=== PATIENT | female | born 1930 | race Caucasian/White ===

== ENCOUNTER 2016-12-02 10:09 | Outpatient (CLI) | payer MEDICARE, OTHER ==
[2016-10-09 00:01] VITALS: BP 148/68
== END 2016-12-02 10:10 ==
LOC: POD 10:09
PROVIDERS: ATTEND Podiatrist Public Medicine
DX: B35.1 Tinea unguium (principal); L60.0 Ingrowing nail; M79.675 Pain in left toe(s)
CPT/HCPCS: G0463

== ENCOUNTER 2017-04-12 16:44 | Outpatient (CLI) | payer MEDICARE, OTHER ==
[2016-10-09 00:01] VITALS: BP 148/68
[2017-04-12 17:14] LABS: BASOPHILS % 0.5 (0.0-1.5); MEAN CORPUSCULAR VOLUME 95.2 fl (80.0-100.0); MONOCYTES % 7.4 % (0.0-11.0); NEUTROPHILS # 3.6 # k/uL (1.4-7.7)
[2017-04-12 17:22] LABS: eGFR (African) > 60; eGFR (Non-African) > 60
--- NOTE | 2017-04-12 18:31 | Diagnostic Imaging Report ---
[facility] [address] [facility].[address] [address] Report Submission Date: April 12, 2017 6:23:00 PM CDT Patient Study Name: BROOK ARAYA Date: April 12, 2017 5:02:05 PM CDT Modality Type: CR Gender: F Description: CHEST : 30 Institution: [facility] Physician: KELSEA BELEM - OP Chest, 2 view History: INCREASED DYSPNEA PAST 7 DAYS, END STAGE COPD, CHRONIC CHF, CURRENT SMOKER (71 YEARS OF SMOKING) Findings: The heart size is mildly enlarged with mild central vascular congestion. The lung amor are unchanged in appearance. There is blunting of the right costophrenic angle which is unchanged suggesting pleural thickening or small pleural effusion. Impression: 1. Mild cardiomegaly with central pulmonary vascular prominence, unchanged. 2. Possible small right pleural effusion versus pleural thickening, stable. Electronically signed on April 12, 2017 6:23:00 PM CDT by: Joseph PIMENTEL
== END 2017-04-12 16:45 ==
LOC: LAB 16:44
PROVIDERS: ATTEND Family Medicine
DX: I50.9 Heart failure, unspecified (principal); Z51.81 Encounter for therapeutic drug level monitoring; D63.8 Anemia in other chronic diseases classified elsewhere
CPT/HCPCS: 71020; 80053; 83880; 85025

== ENCOUNTER 2017-04-30 16:48 | Observation (INO) | payer MEDICARE, OTHER ==
--- NOTE | 2017-04-30 17:56 | History and Physical Report ---
History of Present Illnes - History of Present Illness Reason for Visit: Dyspnea/fever/hypoxia History of Present Illness: This is an 86 year old female well known to me with a history of end stage COPD and end stage aortic stenosis (refusing surgical treatment therof) who presented to the office this afternoon with c/o fever over the past few days to 102, and dyspnea. Her O2 sats in the office were 84%, and she was placed on oxygen (she is not on oxygen at home). She says that she has felt very tired and dyspneic with minimal exertion. She continues to smoke, but has cut down due to continued worsening of her COPD. She has not had any ill contacts of which she is aware. She has a cough which is intermittently productive. - Past Medical History Cardiac: CHF, Aortic stenosis (mod to severe). denies: AFIB, CAD, HTN, Hyperlipidemia Pulmonary: COPD Gastrointestinal: GERD. denies: Constipation, GI bleed Musculoskeletal: Osteoarthritis Endocrine: Other (hyperglycemia) - Past Surgical History Past Surgical History: None - Past Social History Smoke: <1 pack per day Alcohol: Occassional (one -3 drinks a week) Drugs: None Lives: Alone (), Other (uses a walker at times, able to get meals ok - uses the croSec[employer] pot alot and microwave dinners) - Health Maintenance Health Maintenance: Pneumococcal Vaccine (2009). denies: Cholesterol, Tetanus, Influenza Vaccine Influenza Vaccine: Current for this Influenza Season Pneumonia Vaccine: Yes Resuscitation Status: Resusciation Status Resuscitation Status Full Code - Unable to Obtain History Unable to Obtain: No Review of Systems - Review of Systems Constitutional: Fever, Chills, Sweats, Malaise Eyes: pain (generalized) ENT: negative: Ear Pain, Ear Discharge Respiratory: Cough, Shortness of Breath, SOB with Excertion, Wheezing Cardiovascular: negative: Chest Pain Gastrointestinal: negative: Nausea, Vomiting, Abdominal Pain Genitourinary: negative: Dysuria Musculoskeletal: negative: Neck Pain, Shoulder Pain Skin: negative: Rash Neurological: Weakness. negative: Change in Speech, Confusion - Medications/Allergies Allergies/Adverse Reactions: Allergies Allergy/AdvReac Type Severity Reaction Status Date / Time albuterol AdvReac Intermediate Palpitation Verified 10/08/16 22:43 s Exam - Exam General: Alert, Oriented to Person, Oriented to Place, Mild distress (due to dyspnea and generalized aches) HEENT: Atraumatic, PERRLA Neck: No: Stridor, Rigidity Lungs: Wheezes, Rhonchi, Prolonged Expiration, Decreased Air Movement Cardiovascular: Regular rate, Murmur (IV/ DEBBY) Heart Murmur Grade: IV Abdomen: Normal bowel sounds, Soft, No tenderness Genitourinary: No: Right Inguinal Hernia, Left Inguinal Hernia Male Genitourinary: No: Other Female Genitourinary: No: Other Integumentary: Pale. No: Cyanotic, Rash Extremities: Other (4+ edema BLE). No: No clubbing, No cyanosis Neurological: Normal speech Psych/Mental Status: Mental status NL - Interpretation/Data Interpretation/Data: CXR/cmp/CBC/UA pending. Assessment/Plan - Assessment/Plan (1) Fever and chills Status: Acute Current Visit: Yes Assessment: Check CBC, CXR, ua (2) Aortic stenosis, non-rheumatic Status: Acute Current Visit: No Assessment: Chronic and refusing surgical correction (3) COPD (chronic obstructive pulmonary disease) Status: Acute Current Visit: No Qualifiers: COPD type: unspecified COPD Qualified Code(s): J44.9 - Chronic obstructive pulmonary disease, unspecified Comment: With continued smoking Assessment: Declines nebulizer treatments (4) Congestive heart failure Status: Acute Current Visit: No Qualifiers: Congestive heart failure type: unspecified congestive heart failure type Congestive heart failure chronicity: acute on chronic Qualified Code(s): I50.9 - Heart failure, unspecified Assessment: Due to end stage (5) SOB (shortness of breath) Status: Acute Current Visit: No Assessment: Due to COPD and CHF Plan: Check CXR, BMP VTE Assessment - RISK FACTOR SCORE VTE RISK FACTOR SCORES: AGE OVER 60 YEARS, ACUTE RESPIRATORY FAILURE/SEVERE COPD (Start Lovenox 30 mg sc qd)
[2017-04-30] MEDS ORDERED: ENOXAPARIN SODIUM 30 MG/0.3 ML DISP.SYRIN SQ SCH (18:00)
[2017-04-30 18:21] LABS: BASOPHILS % 0.4 (0.0-1.5); EOSINOPHILS % 0.7 % (0.0-6.8); MEAN CORPUSCULAR HEMOGLOBIN 31.3 pg (28.0-34.0); MEAN CORPUSCULAR VOLUME 95.9 fl (80.0-100.0); MONOCYTES % 6.8 % (0.0-11.0); NEUTROPHILS # 5.6 # k/uL (1.4-7.7)
[2017-04-30 18:29] LABS: eGFR (African) > 60; eGFR (Non-African) > 60
[2017-04-30] MEDS ORDERED: ENOXAPARIN SODIUM 30 MG/0.3 ML DISP.SYRIN SQ ONE (19:28)
[2017-04-30] MEDS ORDERED: BUSPIRONE HCL 5 MG TABLET PO ONE (19:30)
[2017-04-30] MEDS ORDERED: METOPROLOL TARTRATE 50 MG TABLET ONE (19:30)
[2017-04-30 19:36] VITALS: BMI 21.1
[2017-04-30] MEDS: METOPROLOL TARTRATE 25 MG TABLET PO SCH (20:01)
[2017-04-30] MEDS: BUSPIRONE HCL 5 MG TABLET PO SCH (20:01)
[2017-05-01] MEDS ORDERED: FUROSEMIDE 40 MG TABLET PO ONE (04:56)
[2017-05-01] MEDS ORDERED: BUSPIRONE HCL 5 MG TABLET PO ONE (04:56)
[2017-05-01] MEDS ORDERED: POTASSIUM CHLORIDE 10 MEQ TABLET.ER PO ONE (04:56)
[2017-05-01] MEDS ORDERED: METOPROLOL TARTRATE 50 MG TABLET ONE (04:57)
--- NOTE | 2017-05-01 07:09 | Diagnostic Imaging Report ---
[facility] [address] [facility].[address] [address] Report Submission Date: Apr 30, 2017 6:33:17 PM CDT Patient Study Name: BROOK ARAYA Date: Apr 30, 2017 6:03:06 PM CDT Modality Type: CR Gender: F Description: CHEST : 30 Institution: [facility] Physician: [facility] Examination: PA lateral chest History: Dyspnea Comparison exams: 12 Apr 2017 Findings: PA and lateral view of the chest demonstrates a stable cardiac silhouette. Few vascular calcifications involving the aortic arch. Increased parenchymal haziness involving the right costophrenic margin. Remaining right hemithorax and the left hemithorax are without other infiltrate. Blunting of the posterior sulci on the right. Osseous structures are appropriate for age. Impression: Increased right base infiltrate/effusion. Electronically signed on Apr 30, 2017 6:33:17 PM CDT by: Rush PIMENTEL
[2017-05-01] MEDS ORDERED: POTASSIUM CHLORIDE 10 MEQ TABLET.ER PO SCH (09:00)
[2017-05-01] MEDS ORDERED: FUROSEMIDE 40 MG TABLET PO SCH (09:00)
[2017-05-01] MEDS: BUSPIRONE HCL 5 MG TABLET PO SCH (09:21)
[2017-05-01] MEDS: METOPROLOL TARTRATE 25 MG TABLET PO SCH (09:22)
[2017-05-01 13:34] VITALS: BP 124/64
[2017-05-02 05:39] LABS: OCCULT BLOOD,URINE TRACE-LYSED (NEGATIVE); PH URINE 5.5 (5.0 - 8.0)
--- NOTE | 2017-05-03 08:35 | Discharge Summary ---
DATE OF ADMISSION: April 30, 2017 DATE OF DISCHARGE: May 01, 2017 DIAGNOSES ON THIS HOSPITALIZATION: 1. Right basilar pneumonia. 2. Chills. 3. Fever. 4. Aortic stenosis. 5. Congestive heart failure. 6. Chronic obstructive pulmonary disease (COPD). SUMMARIZATION OF ADMISSION HISTORY AND PHYSICAL: This is an 86-year-old female who I saw in the office on the day of admission with fever and she was also noted to be hypoxic with a pulse oximetry of 84%. As a result, she was admitted for observation. Workup was done. A CBC essentially was within normal limits. Her electrolytes were within normal limits. She did have a right basilar infiltrate. HOSPITAL COURSE: She was admitted. After an evaluation, she was started on Ceftin 250 mg p.o. b.i.d. She was discharged to home with continuation of all of her regular medications. CONDITION ON DISCHARGE: She was discharged to home in improved condition. DISCHARGE INSTRUCTIONS: Follow up in the office in 1 week. Call or return for any new problems. MARGARITO
== END 2017-05-01 13:00 | disposition home or self-care (01) ==
LOC: SOUTH 16:48 → INTOOBSV 16:48 → UNDOADMIN 16:48 → UNDODISIN 05-01 13:00
PROVIDERS: ADMIT Family Medicine; ATTEND Family Medicine
DX: J18.1 Lobar pneumonia, unspecified organism (principal); J44.1 Chronic obstructive pulmonary disease with (acute) exacerbation; I35.1 Nonrheumatic aortic (valve) insufficiency; I50.9 Heart failure, unspecified
CPT/HCPCS: 36415; 71020; 80053; 81002; 85025; 93005; G0378; G0379; J1650; 96374; 96376

== ENCOUNTER 2017-05-07 11:50 | Emergency (ER) | payer MEDICARE, OTHER ==
[2017-05-07] MEDS: BUDESONIDE 0.5MG/2ML AMPUL.NEB NEB ONE (12:05)
[2017-05-07] MEDS ORDERED: BUDESONIDE 0.5MG/2ML AMPUL.NEB NEB ONE (12:05)
[2017-05-07] MEDS ORDERED: IPRATROPIUM/ALBUTEROL SULFATE 3 ML AMPUL.NEB NEB ONE (12:06)
[2017-05-07] MEDS: IPRATROPIUM/ALBUTEROL SULFATE 3 ML AMPUL.NEB NEB ONE (12:21)
[2017-05-07] MEDS: predniSONE 20 MG TABLET PO ONE (12:38)
--- NOTE | 2017-05-07 14:15 | Diagnostic Imaging Report ---
[facility] [address] [facility].[address] [address] Report Submission Date: May 07, 2017 1:02:13 PM CDT Patient Study Name: BROOK ARAYA Date: May 07, 2017 12:33:33 PM CDT Modality Type: CR Gender: F Description: CHEST : 30 Institution: [facility] Physician WILLIAM MCMAHAN - ER Chest -one view CLINICAL HISTORY: Shortness of breath. FINDINGS: Examination of the chest single portable AP view 05/07/2017 1233 hr with comparison to examination of 04/30/2017 demonstrates improved aeration right base with residual right-sided effusion and right basilar atelectasis. There is mild prominence of the bronchovascular markings. Cardiac silhouette is enlarged and the aorta is atherosclerotic. Monitor leads superimpose the chest. IMPRESSION: Improved aeration right base with residual effusion and infiltrate or atelectasis. Prominence of bronchovascular markings consistent with congestion. Electronically signed on May 07, 2017 1:02:13 PM CDT by: Noah PIMENTEL
--- NOTE | 2017-05-07 14:29 | ED Physician Documentation ---
Dyspnea - HISTORIAN Historian: patient - HPI Stated Complaint: short of breath Chief Complaint: Dyspnea Additional Information: not using nebulizer txs and oxygen at home Onset: other (today) Initiating Event: other (refuses to take nebulizer trteatments and oxygen) Context: copd Severity: moderate Exacerbated By: exertion Associated Symptoms: denies: sweating, chest pain, chest discomfort, bloody cough, productive cough, dizziness, light-headedness Further Comments: no - ROS CONST: no problems EYES/ENT: none GI/: none NEURO/PSYCH: denies: headache MS/SKIN/LYMPH: none - PAST HX Lung Disease: COPD Cardiac Disease: CHF PE Risk Factors: other (copd and chf) Surgeries/Procedures: other (see nurses notes) Other History: none Immunizations: referred to PCP Allergies/Adverse Reactions: Allergies Allergy/AdvReac Type Severity Reaction Status Date / Time albuterol AdvReac Intermediate Palpitation Verified 10/08/16 22:43 s Home Medications: Ambulatory Orders Medication Instructions Recorded Levalbuterol HCl [Xopenex] 1.25 mg NEB Q6 PRN #100 ampul.neb 01/24/16 Aspirin 325 mg PO DAILY u2 07/21/16 - SOCIAL HX Smoking History: non-smoker, quit less than 1 year, other (former heavy smoker) Alcohol Use: none Drug Use: none - FAMILY HX Family History: no significant history - VITAL SIGNS Vital Signs: Vital Signs Temp Pulse Resp BP Pulse Ox 97.8 F 79 24 190/79 88 L 05/07/17 11:51 05/07/17 11:51 05/07/17 11:51 05/07/17 11:51 05/07/17 11:51 - REVIEWED ASSESSMENTS Nursing Assessment Reviewed: Yes Vitals Reviewed: Yes Progress - Results/Orders Results/Orders: cxr, duoneb and pulmicort nebulizers ordered, prednisone 60 mg p.o. ordered - Progress Progress: Pt's ra O2 sat 88% on presentation, increased to 96% after duoneb and pulmicort txs. No significant tachycardia and palpitations occured and it was made clear to patient that this is not an allergy and not even a significant side effect as we just proved by giving her an albuterol based tx with no adverse effect. Critical Care Note - Critical Care Note Total Time (mins): 0 ED Results Lab/Radiology - Lab Results Lab Results: none ordered - Radiology Radiology Impressions: cxr clear of infiltrate - Orders Orders: ED Orders Category Date Time Status CHEST 1 VIEW [RAD] Routine Exams 05/07/17 Ordered Budesonide [Pulmicort] Med 05/07/17 12:05 Discontinued 0.5 mg NEB .STK-MED ONE Budesonide [Pulmicort] Med 05/07/17 12:09 Discontinued 0.5 mg NEB NOW ONE Ipratropium/Albuterol Sulfate [Duoneb] Med 05/07/17 12:06 Discontinued 3 ml NEB .STK-MED ONE Ipratropium/Albuterol Sulfate [Duoneb] Med 05/07/17 12:04 Discontinued 3 ml NEB NOW ONE predniSONE [Deltasone] Med 05/07/17 12:04 Discontinued 60 mg PO NOW ONE Oxygen Daily Oxygen 05/07/17 12:15 Ordered Dyspnea Physical Exam - EXAM General Appearance: alert, mild distress EENT: eye inspection normal, ENT inspection normal, pharynx normal, no signs of dehydration, JOHNNY, no nystagmus, TM's nml Neck: nml inspection Respiratory: no resp. distress, speaks full sentences, wheezes (mild, scatererd) . No: respiratory distress, accessory muscle use, rales, rhonchi, stridor CVS: reg. rate & rhythm Abdomen: non-tender, no organomegaly, no distention Skin: color nml, no rash Extremities: normal range of motion, no evidence of injury, edema Neuro/Psych: oriented x3, CN's nml as tested, motor nml, sensation nml, mood/ affect nml Discharge Clincal Impression: COPD (chronic obstructive pulmonary disease) Qualifiers: COPD type: COPD with acute exacerbation Qualified Code(s): J44.1 - Chronic obstructive pulmonary disease with (acute) exacerbation Referrals: Néstro Huber MD [Primary Care Provider] - 2 Days Home Medications: Ambulatory Orders Levalbuterol HCl [Xopenex] 1.25 mg NEB Q6 PRN #100 ampul.neb 01/24/16 Aspirin 325 mg PO DAILY u2 07/21/16 Comments: discharged with scripts and strict recommendation to use oxygen 2 liters nc continuous, nebulizer, duoneb via nebulizer qid and q 4 hours prn, pulmicort 0.5 mg bid, prednisone 10 mg 5 p.o. x 1 day then 4 p.o. x 1 day then 3 p.o. x 1 day then 2 p.o. x 1 day then 1 p.o. x 1 day then off Condition: Stable Disposition: 01 HOME, SELF-CARE Decision to Admit: NO Decision Time: 14:30
[2017-05-07 15:30] VITALS: BP 144/62
== END 2017-05-07 14:45 | disposition home or self-care (01) ==
LOC: ED 11:50
DX: J44.1 Chronic obstructive pulmonary disease with (acute) exacerbation (principal)
CPT/HCPCS: 71010; J7626; 99283

== ENCOUNTER 2017-06-30 05:44 | Inpatient (IN) | payer MEDICARE, OTHER ==
[2017-06-30] MEDS ORDERED: IPRATROPIUM/ALBUTEROL SULFATE 3 ML AMPUL.NEB NEB ONE (06:11)
--- NOTE | 2017-06-30 06:24 | ED Physician Documentation ---
General Adult - HISTORIAN Historian: patient - HPI Stated Complaint: SOB Chief Complaint: General Adult Additional Information: SOB began yesterday but she ignored it. Woke her up quite short of breath this morning. COPD .Still smokes and says it helps her breathe better. Does not use oxygen because it doesn't help and she can't carry it around al the time. Lower legs swollen. Doesn't take lasix because it makes her urinate too much. - ROS CONST: no problems. denies: fever, sweating - PAST HX Past History: COPD - SOCIAL HX Smoking History: cigarettes - FAMILY HX Family History: No - VITAL SIGNS Vital Signs: Vital Signs Temp Pulse Resp BP Pulse Ox 88 22 213/91 98 06/30/17 06:00 06/30/17 06:00 06/30/17 06:00 06/30/17 06:00 - REVIEWED ASSESSMENTS Nursing Assessment Reviewed: Yes Vitals Reviewed: Yes <THU SÁNCHEZ - Last Filed: 06/30/17 06:58> - VITAL SIGNS Vital Signs: Vital Signs Temp Pulse Resp BP Pulse Ox 88 22 213/91 98 06/30/17 06:00 06/30/17 06:00 06/30/17 06:00 06/30/17 06:00 <John Smith - Last Filed: 06/30/17 09:08> - PAST HX Allergies/Adverse Reactions: Allergies Allergy/AdvReac Type Severity Reaction Status Date / Time albuterol AdvReac Intermediate Palpitation Verified 06/30/17 06:09 s Home Medications: Ambulatory Orders Medication Instructions Recorded Aspirin 325 mg PO DAILY u2 07/21/16 Progress - Progress Progress: 0700, Care to Dr Juarez. Awaiting labs and CXR. <THU SÁNCHEZ - Last Filed: 06/30/17 06:58> ED Results Lab/Radiology - Orders Orders: ED Orders Category Date Time Status Place IV Lock 1T Care 06/30/17 06:11 Ordered CBC/PLATELET/DIFF Routine Lab 06/30/17 Ordered CMP Routine Lab 06/30/17 Ordered NT-proBNP Stat Lab 06/30/17 Ordered URINALYSIS Routine Lab 06/30/17 Ordered Budesonide [Pulmicort] Med 06/30/17 09:00 Ordered 0.5 mg NEB BID Ipratropium/Albuterol Sulfate [Duoneb] Med 06/30/17 06:11 Once 3 ml NEB NOW ONE NORMAL SALINE @ 100 MLS/HR(1000ml) Med 06/30/17 06:30 Ordered 0.9 % Sodium Chloride [Normal Saline] 1,000 ml IV Q10H <THU SÁNCHEZ - Last Filed: 06/30/17 06:58> - Lab Results Lab Results: Lab Results 06/30/17 06/30/17 06/30/17 07:35 07:35 07:35 WBC 4.95 K/ul K/ul (4.00-12.00) RBC 4.04 M/ul M/ul (3.90-5.20) Hgb 12.2 g/dL g/dL (12.0-16.0) Hct 37.3 % % (34.5-46.5) MCV 92.4 fl fl (80.0-100.0) MCH 30.2 pg pg (28.0-34.0) MCHC 32.7 g/dL g/dL (30.0-36.0) RDW 14.2 % % (11.3-14.3) Plt Count 268 K/mm3 K/mm3 (130-400) Neut % (Auto) 74.8 % % (39.0-79.0) Lymph % (Auto) 15.5 % L % (16.0-50.0) [place] % (Auto) 5.6 % % (0.0-11.0) Eos % (Auto) 2.9 % % (0.0-6.8) Baso % (Auto) 0.3 (0.0-1.5) Neut # (Auto) 3.7 # k/uL # k/uL (1.4-7.7) Lymph # (Auto) 0.8 # k/uL # k/uL (0.6-4.0) [place] # (Auto) 0.3 # k/uL # k/uL (0.0-0.9) Eos # (Auto) 0.2 # k/uL # k/uL (0.0-0.6) Baso # (Auto) 0.0 # k/uL # k/uL (0.0-0.5) Reactive Lymphs % 0.8 % % (0.0-5.0) Reactive Lymphs # 0.0 # k/uL # k/uL (0.0-0.8) Sodium 138 mmol/L mmol/L (136-145) Potassium 3.9 mmol/L mmol/L (3.5-5.0) Chloride 98 mmol/L mmol/L (98-110) Carbon Dioxide 36 mmol/L H mmol/L (20-32) BUN 13 mg/dL mg/dL (10-26) Creatinine 0.7 mg/dL mg/dL (0.4-1.5) Estimated Creat Clear 51 Est GFR ( Amer) > 60 (60 - ) Est GFR (Non-Af Amer) > 60 (60 - ) Glucose 116 mg/dL H mg/dL (70-99) Calcium 9.4 mg/dL mg/dL (8.5-10.5) Total Bilirubin 0.8 mg/dL mg/dL (0.2-1.2) AST 21 U/L U/L (0-41) ALT 11 U/L U/L (0-45) Alkaline Phosphatase 62 U/L U/L (46-116) NT-Pro-B Natriuret Pep 9633.4 pg/mL H pg/mL (15.0-450.0) Total Protein 6.8 g/dL g/dL (6.0-8.5) Albumin 4.4 g/dL g/dL (3.0-5.5) - Orders Orders: ED Orders Category Date Time Status [place] [Urinary catheterization] 1T Care 06/30/17 09:[address] IV Lock 1T Care 06/30/17 06:11 Active CHEST 1 VIEW [RAD] Stat Exams 06/30/17 Taken CBC/PLATELET/DIFF Routine Lab 06/30/17 07:35 Completed CMP Routine Lab 06/30/17 07:35 Completed NT-proBNP Stat Lab 06/30/17 07:35 Completed URINALYSIS Routine Lab 06/30/17 Ordered 0.9 % Sodium Chloride [Normal Saline] 1,000 ml Med 06/30/17 06:30 Ordered IV Q10H Budesonide [Pulmicort] Med 06/30/17 09:00 Ordered 0.5 mg NEB BID Furosemide [Lasix] Med 06/30/17 09:02 Discontinued 40 mg .ROUTE .STK-MED ONE Furosemide [Lasix] Med 06/30/17 21:00 Ordered 40 mg IVP Q12 Ipratropium/Albuterol Sulfate [Duoneb] Med 06/30/17 06:11 Discontinued 3 ml NEB NOW ONE <John Smith - Last Filed: 06/30/17 09:08> General Adult Physical Exam - PHYSICAL EXAM GENERAL APPEARANCE: no distress (on 3L/NC at time of exam) EENT: eye inspection normal, ENT inspection normal, pharynx normal NECK: supple RESPIRATORY: chest non-tender, wheezes, other (decreased breath sounds throughotu) CVS: reg rate & rhythm, heart sounds normal, murmur (3/6 DEBBY) ABDOMEN: soft, normal bowel sounds RECTAL: deferred BACK: no CVA tenderness, other (no vertebral tenderness. thoracic kyphosis) SKIN: warm/dry, normal color (except lower legs with erythema) EXTREMITIES: no evidence of injury, edema (lower legs) NEURO: CN's nml as tested, motor nml, sensation nml, cognition normal <THU SÁNCHEZ - Last Filed: 06/30/17 06:58> Discharge <THU SÁNCHEZ - Last Filed: 06/30/17 06:58> Comments: discussed condition w/ pt and DR ENAMORADO - will admit care Decision to Admit: [id number] Decision Time: 09:08 <John Smith - Last Filed: 06/30/17 09:08> Clincal Impression: acute exab chronic chf, chronic chf w/exaberation, bilateral leg edema Referrals: Néstor Enamorado MD [Primary Care Provider] - 2 Days Home Medications: Ambulatory Orders Aspirin 325 mg PO DAILY u2 07/21/16 Condition: Fair Disposition: XFER [facility]
[2017-06-30] MEDS ORDERED: 0.9 % SODIUM CHLORIDE 1,000 ML IV SCH (06:30)
[2017-06-30 07:58] LABS: MEAN CORPUSCULAR HEMOGLOBIN 30.2 pg (28.0-34.0); MEAN CORPUSCULAR VOLUME 92.4 fl (80.0-100.0)
[2017-06-30 07:59] LABS: BASOPHILS % 0.3 (0.0-1.5); EOSINOPHILS % 2.9 % (0.0-6.8); MONOCYTES % 5.6 % (0.0-11.0); NEUTROPHILS # 3.7 # k/uL (1.4-7.7)
[2017-06-30 08:09] LABS: eGFR (African) > 60; eGFR (Non-African) > 60
[2017-06-30] MEDS ORDERED: BUDESONIDE 0.5MG/2ML AMPUL.NEB NEB SCH (09:00)
[2017-06-30] MEDS ORDERED: FUROSEMIDE 20 MG/2 ML VIAL ONE (09:02)
--- NOTE | 2017-06-30 13:10 | History and Physical Report ---
History of Present Illnes - History of Present Illness Reason for Visit: Shortness of breath History of Present Illness: This is an 86 year old female well known to myself who presents to the ER today with c/o increasing shortness of breath over the past few days. She has a long history of non compliance due to side effects of her medications. She continues to smoke, but has cut down to between 1 and 2 packs per day. She has a history of CHF and this is mostly due to severe aortic stenosis and she has declined ( reasonably) treatment of this. She seldom takes her furosemide due to problems with urinary incontinence and won't use her nebulizer due to it making her anxious. She does use a Attila's nasal inhaler, but uses it orally. She has recently begrudgingly consented to use her oxygen. She denies any chest pain but has significant orthopnea. - Past Medical History Cardiac: CHF, Aortic stenosis (mod to severe). denies: AFIB, CAD, HTN, Hyperlipidemia Pulmonary: COPD Gastrointestinal: GERD. denies: Constipation, GI bleed Psych: denies: Anxiety Musculoskeletal: Osteoarthritis Endocrine: Other (hyperglycemia) - Past Surgical History Past Surgical History: None - Past Social History Smoke: <1 pack per day Alcohol: Occassional (one -3 drinks a week) Drugs: None Lives: Alone (), Other (uses a walker at times, able to get meals ok - uses the crock pot alot and microwave dinners) Domestic Violence: Negative - Health Maintenance Health Maintenance: Pneumococcal Vaccine (2009). denies: Cholesterol, Tetanus, Influenza Vaccine Influenza Vaccine: Current for this Influenza Season Pneumonia Vaccine: Yes Resuscitation Status: DNR Review of Systems - Review of Systems Constitutional: negative: Fever, Chills Eyes: negative: pain, redness ENT: negative: Ear Discharge Respiratory: Cough, Shortness of Breath, SOB with Excertion, Other (orthopenea) Cardiovascular: negative: Chest Pain Gastrointestinal: negative: Nausea, Vomiting Genitourinary: negative: Dysuria Musculoskeletal: negative: Neck Pain, Shoulder Pain Skin: negative: Rash Neurological: negative: Weakness, Change in Speech - Medications/Allergies Allergies/Adverse Reactions: Allergies Allergy/AdvReac Type Severity Reaction Status Date / Time albuterol AdvReac Intermediate Palpitation Verified 06/30/17 06:09 s Current Inpatient Medications: Current Inpatient Medications Aspirin (Aspirin) 325 mg PO DAILY DIANA Miscellaneous (Potassium Chloride [Potassium Chloride]) 2 u2 PO DAILY [facility] Prednisone (Deltasone) 20 mg PO DAILY [facility] Exam - Exam Vital Signs: Vital Signs (72 hours) 06/30/17 06/30/17 09:54 10:02 Temperature 98.5 F Pulse Rate [ 68 75 Pulse ox] Respiratory 24 20 Rate Blood Pressure 183/66 184/68 [Left Arm] O2 Sat by Pulse 96 100 Oximetry General: Alert, Oriented to Person, Oriented to Place, Oriented to Time, Moderate distress (respiratory) HEENT: Atraumatic, PERRLA Neck: No: Stridor Lungs: Wheezes, Rales, Prolonged Expiration, Decreased Air Movement Cardiovascular: Regular rate Murmur: Systolic Murmur Heart Murmur Grade: IV (consistent with aortic stenosis (crescendo-decrescendo)) Abdomen: Normal bowel sounds, Soft Genitourinary: No: Right Inguinal Hernia, Left Inguinal Hernia Female Genitourinary: No: Other Integumentary: Normal Extremities: Other (4+ edema BLE) Neurological: Normal speech, Strength Equal Bilat, Normal tone Psych/Mental Status: Mental status NL, Intact Judgment Assessment/Plan - Assessment/Plan (1) Congestive heart failure Status: Acute Current Visit: No Qualifiers: Congestive heart failure type: unspecified congestive heart failure type Congestive heart failure chronicity: acute on chronic Qualified Code(s): I50.9 - Heart failure, unspecified Assessment: She agrees to allow lasix until she is better (2) Aortic stenosis, non-rheumatic Status: Acute Current Visit: No Assessment: Declining intervention (3) COPD (chronic obstructive pulmonary disease) Status: Acute Current Visit: No Qualifiers: COPD type: unspecified COPD Qualified Code(s): J44.9 - Chronic obstructive pulmonary disease, unspecified Comment: With continued smoking Assessment: With continued smoking Plan: Supplemental oxygen/nebulizer treatments VTE Assessment - RISK FACTOR SCORE VTE RISK FACTOR SCORES: AGE OVER 60 YEARS, ANTICIPATED BED CONFINEMENT OR IMMOBILIZATION > 24 HOURS (On Lovenox and KAYE hose)
[2017-06-30] MEDS: predniSONE 20 MG TABLET PO SCH (13:35)
--- NOTE | 2017-06-30 15:42 | Diagnostic Imaging Report ---
THU SÁNCHEZ - JOSE FRANCISCO [facility] [address] [facility] [address] [address] Report Submission Date: Jun 30, 2017 7:20:23 AM CDT Patient Study Name: BROOK ARAYA Date: Jun 30, 2017 7:01:09 AM CDT Modality Type: CR Gender: F Description: CHEST : 30 Institution: [facility] Physician: THU SÁNCHEZ - JOSE FRANCISCO Chest -one view CLINICAL HISTORY: Shortness breath. FINDINGS: Examination of the chest single portable AP view 06/30/2017 0701 hr with comparison to examination of 05/07/2017 demonstrates increasing pulmonary vascular congestion with small effusions blunting the costophrenic angles. Cardiac silhouette is enlarged and the aorta is atherosclerotic. Monitor leads superimpose the chest. IMPRESSION: Congestive heart failure with worsening pulmonary vascular congestion. Electronically signed on Jun 30, 2017 7:20:23 AM CDT by: Noah PIMENTEL
[2017-06-30 18:37] VITALS: BMI 20.7
[2017-06-30] MEDS ORDERED: FUROSEMIDE 40 MG/4 ML VIAL IVP SCH (21:00)
[2017-07-01] MEDS: POTASSIUM CHLORIDE 20 MEQ TABLET.ER PO SCH (08:30)
[2017-07-01] MEDS: predniSONE 20 MG TABLET PO SCH (08:30)
[2017-07-01] MEDS: ASPIRIN 325 MG TABLET PO SCH (08:30)
[2017-07-01] MEDS ORDERED: POTASSIUM CHLORIDE PO SCH (09:00)
--- NOTE | 2017-07-01 10:33 | Inpatient Progress Note ---
Subjective - Required Recertification Statement I anticipate X number of days because-include discharge plan: 1 - Review of Systems Events since last encounter: Debra is still very short of breath. She is allowing us to give her lasix, and nebulizer treatments. She says that her nose was very dry as her humidifier on her oxygen was dry. She is not having any chest pain. General: Denies: Chills, Night Sweats HEENT: Denies: Head Aches, Visual Changes Pulmonary: Dyspnea, Cough Cardiovascular: Orthopnea. Denies: Chest Pain, Palpitations Gastrointestinal: Denies: Nausea Genitourinary: Denies: Dysuria Musculoskeletal: Denies: Neck Pain Neurological: Weakness. Denies: Confusion Objective - Exam Vitals and I&O: Vital Signs Temp 97.7 F 07/01/17 09:39 Pulse 75 07/01/17 09:39 Resp 26 H 07/01/17 09:39 BP 159/96 07/01/17 09:39 Pulse Ox 92 07/01/17 09:39 Intake & Output 06/30/17 06/30/17 07/01/17 11:59 23:59 11:59 Intake Total 340 840 Balance 340 840 Weight 48.081 kg Intake: Oral 340 840 Other: Voiding Method Toilet Toilet # Voids 2 4 General: Alert, Oriented to Place, Cooperative, Mild distress, Thin HEENT: Atraumatic, PERRLA, EOMI, Other (Dentures) Neck: Supple Lungs: Respiratory Distress, Wheezes, Rales, Decreased Air Movement Cardiovascular: Regular rate, Murmur (II/) Abdomen: Normal bowel sounds, Soft Skin: Normal, [place], Warm - Results Results: Laboratory Results WBC 5.00 K/ul (4.00-12.00) 06/30/17 07:35 RBC 4.04 M/ul (3.90-5.20) 06/30/17 07:35 Hgb 12.2 g/dL (12.0-16.0) 06/30/17 07:35 Hct 37.3 % (34.5-46.5) 06/30/17 07:35 MCV 92.4 fl (80.0-100.0) 06/30/17 07:35 MCH 30.2 pg (28.0-34.0) 06/30/17 07:35 MCHC 32.7 g/dL (30.0-36.0) 06/30/17 07:35 RDW 14.2 % (11.3-14.3) 06/30/17 07:35 Plt Count 268 K/mm3 (130-400) 06/30/17 07:35 Neut % (Auto) 74.8 % (39.0-79.0) 06/30/17 07:35 Lymph % (Auto) 15.5 % (16.0-50.0) L 06/30/17 07:35 [place] % (Auto) 5.6 % (0.0-11.0) 06/30/17 07:35 Eos % (Auto) 2.9 % (0.0-6.8) 06/30/17 07:35 Baso % (Auto) 0.3 (0.0-1.5) 06/30/17 07:35 Neut # (Auto) 3.7 # k/uL (1.4-7.7) 06/30/17 07:35 Lymph # (Auto) 0.8 # k/uL (0.6-4.0) 06/30/17 07:35 [place] # (Auto) 0.3 # k/uL (0.0-0.9) 06/30/17 07:35 Eos # (Auto) 0.2 # k/uL (0.0-0.6) 06/30/17 07:35 Baso # (Auto) 0.0 # k/uL (0.0-0.5) 06/30/17 07:35 Reactive Lymphs % 0.8 % (0.0-5.0) 06/30/17 07:35 Reactive Lymphs # 0.0 # k/uL (0.0-0.8) 06/30/17 07:35 Sodium 138 mmol/L (136-145) 06/30/17 07:35 Potassium 3.9 mmol/L (3.5-5.0) 06/30/17 07:35 Chloride 98 mmol/L (98-110) 06/30/17 07:35 Carbon Dioxide 36 mmol/L (20-32) H 06/30/17 07:35 BUN 13 mg/dL (10-26) 06/30/17 07:35 Creatinine 0.7 mg/dL (0.4-1.5) 06/30/17 07:35 Estimated Creat Clear 51 06/30/17 07:35 Est GFR ( Amer) > 60 (60-) 06/30/17 07:35 Est GFR (Non-Af Amer) > 60 (60-) 06/30/17 07:35 Glucose 116 mg/dL (70-99) H 06/30/17 07:35 Calcium 9.4 mg/dL (8.5-10.5) 06/30/17 07:35 Total Bilirubin 0.8 mg/dL (0.2-1.2) 06/30/17 07:35 AST 21 U/L (0-41) 06/30/17 07:35 ALT 11 U/L (0-45) 06/30/17 07:35 Alkaline Phosphatase 62 U/L (46-116) 06/30/17 07:35 NT-Pro-B Natriuret Pep 9633.4 pg/mL (15.0-450.0) H 06/30/17 07:35 Total Protein 6.8 g/dL (6.0-8.5) 06/30/17 07:35 Albumin 4.4 g/dL (3.0-5.5) 06/30/17 07:35 Assessment/Plan - Assessment/Plan (1) Congestive heart failure Status: Acute Current Visit: No Qualifiers: Congestive heart failure type: unspecified congestive heart failure type Congestive heart failure chronicity: acute on chronic Qualified Code(s): I50.9 - Heart failure, unspecified Assessment: Due to severe Plan: Continue diuresis (2) Aortic stenosis, non-rheumatic Status: Acute Current Visit: No Assessment: Not a surgical candidate (3) COPD (chronic obstructive pulmonary disease) Status: Acute Current Visit: No Qualifiers: COPD type: unspecified COPD Qualified Code(s): J44.9 - Chronic obstructive pulmonary disease, unspecified Comment: With continued smoking Assessment: Continue nebulizer treatments/oxygen
[2017-07-01] MEDS: FUROSEMIDE 40 MG TABLET PO SCH (14:36)
[2017-07-02] MEDS: FUROSEMIDE 40 MG TABLET PO SCH (05:59)
[2017-07-02] MEDS: ASPIRIN 325 MG TABLET PO SCH (08:37)
[2017-07-02] MEDS: POTASSIUM CHLORIDE 20 MEQ TABLET.ER PO SCH (08:37)
[2017-07-02] MEDS: predniSONE 20 MG TABLET PO SCH (08:38)
--- NOTE | 2017-07-02 09:38 | Discharge Summary ---
DATE OF ADMISSION: June 30, 2017 DATE OF DISCHARGE: July 02, 2017 DIAGNOSES ON THIS HOSPITALIZATION: 1. Congestive heart failure. 2. Aortic stenosis. 3. Chronic obstructive pulmonary disease. SUMMARIZATION OF ADMISSION HISTORY AND PHYSICAL: This is an 86-year-old female well known to myself who presented to the emergency room with increasing shortness of breath over the last several days. She has a long history of noncompliance with her medications. She has not been taking her Lasix. HOSPITAL COURSE: She was admitted. Diuresis was begun and she had improved markedly by the . She was discharged to home with continuation of her current medications. She was encouraged to have better medication compliance, as well as smoking cessation; however, we have not had much success with either of these recommendations in the past. CONDITION ON DISCHARGE: She is discharged to home in markedly improved condition. DISCHARGE INSTRUCTIONS: I will see her back in the office in 1 week. MARGARITO
[2017-07-02 10:55] VITALS: BP 124/104
== END 2017-07-02 12:45 | disposition home or self-care (01) | DRG 293 ==
LOC: ED 05:44 → SOUTH 09:18
PROVIDERS: ADMIT Family Medicine; ATTEND Family Medicine
DX: I50.9 Heart failure, unspecified (principal); I35.1 Nonrheumatic aortic (valve) insufficiency; J44.9 Chronic obstructive pulmonary disease, unspecified
CPT/HCPCS: 71010; 80053; 83880; 85025; 93005; A9270; J1940; J7030; J7626; 99222; 99232; 99238; 99284; S1016

== ENCOUNTER 2017-07-13 13:58 | Observation (INO) | payer MEDICARE, OTHER ==
--- NOTE | 2017-07-13 14:17 | ED Physician Documentation ---
Dyspnea - HISTORIAN Historian: patient - HPI Chief Complaint: Near Syncope Onset: minutes (30 minutes) Duration: continues in ED Initiating Event: denies: upper respiratory illness, out of meds, environmental allergy Severity: mild Exacerbated By: change in position Associated Symptoms: none. denies: chills, fever, sweating, chest pain, chest discomfort, productive cough, heart racing Further Comments: yes (patient states that she develop some lightheadedness and dizziness. Patient does not feel like she was saved being alone and subsequently went down to the office of the [facility]. Patient subsequently had a ambulance call brought to the ED. On arrival in the ED patient stated she was starting to feel some better. Denies any precipitating factors that she is aware. Patient did not notice any modifying factors to her symptoms.) - ROS CONST: no problems GI/: none NEURO/PSYCH: denies: headache - PAST HX Lung Disease: other (chronic bronchitis) Cardiac Disease: CHF, CAD Other History: other (headache, dysphagia, hyperglycemia, hx of breast cancer, ) Allergies/Adverse Reactions: Allergies Allergy/AdvReac Type Severity Reaction Status Date / Time albuterol AdvReac Intermediate Palpitation Verified 07/13/17 14:25 s Home Medications: Ambulatory Orders Medication Instructions Recorded Aspirin 325 mg PO DAILY u2 07/21/16 - SOCIAL HX Smoking History: non-smoker Alcohol Use: none Drug Use: none - FAMILY HX Family History: other (DM) - VITAL SIGNS Vital Signs: Vital Signs Temp Pulse Resp BP Pulse Ox 124/104 07/02/17 10:00 - REVIEWED ASSESSMENTS Nursing Assessment Reviewed: Yes Dyspnea Physical Exam - EXAM General Appearance: no acute distress, alert EENT: eye inspection normal, ENT inspection normal, no signs of dehydration, TM' s nml Neck: nml inspection. No: lymphadenopathy Respiratory: no resp. distress, breath sounds nml, no pain on inspiration, speaks full sentences. No: respiratory distress, respiratory failure CVS: reg. rate & rhythm, no gallop, murmur (4/6) Skin: color nml, no rash Extremities: non-tender, normal range of motion, no evidence of injury, edema ( 3 plus) Neuro/Psych: oriented x3, CN's nml as tested, motor nml, sensation nml, mood/ affect nml Discharge Clincal Impression: Aortic stenosis, non-rheumatic, Congestive heart failure Home Medications: Ambulatory Orders Aspirin 325 mg PO DAILY u2 07/21/16 Condition: Good Disposition: 02 XFER SHT-TRM HOSP Decision to Admit: [id number] Date of Decison to Admit: 07/13/17 Decision Time: 15:26
[2017-07-13 14:37] LABS: BASOPHILS % 0.4 (0.0-1.5); MEAN CORPUSCULAR HEMOGLOBIN 30.7 pg (28.0-34.0); MEAN CORPUSCULAR VOLUME 93.1 fl (80.0-100.0); MONOCYTES % 4.7 % (0.0-11.0); NEUTROPHILS # 4.6 # k/uL (1.4-7.7)
[2017-07-13 14:51] LABS: eGFR (African) > 60; eGFR (Non-African) > 60
[2017-07-13 14:58] LABS: APPEARANCE,URINE Clear (CLEAR); COLOR,URINE Yellow (YELLOW); OCCULT BLOOD,URINE Trace-intact (NEGATIVE); UROBILINOGEN URINE 0.2 Eu (0.2-1.0)
--- NOTE | 2017-07-13 15:22 | Diagnostic Imaging Report ---
ALVARO WHITE [facility] [address] [facility].[address] [address] Report Submission Date: Jul 13, 2017 3:01:58 PM CDT Patient Study Name: BROOK ARAYA Date: Jul 13, 2017 2:31:19 PM CDT Modality Type: CR Gender: F Description: CHEST : 30 Institution: [facility] Physician: ALVARO WHITE Examination: PA and lateral chest. History: Evaluate lung amor. Comparison exams: 07 May 2017 and 30 June 2017 Findings: PA lateral chest demonstrate a normal cardiac silhouette. Few vascular calcifications involving the aortic arch. Chronic blunting of the right costophrenic margin and posterior sulci. No new infiltrate. No left effusion. Prominent hilar vasculature. Osseous structures are appropriate for age. Impression: Stable right base thickening/blunting. No new/acute parenchymal process. Electronically signed on Jul 13, 2017 3:01:58 PM CDT by: Rush PIMENTEL
[2017-07-13] MEDS ORDERED: LISINOPRIL 5 MG TABLET PO ONE (15:38)
[2017-07-13] MEDS ORDERED: ENOXAPARIN SODIUM 30 MG/0.3 ML DISP.SYRIN SQ SCH (16:00)
[2017-07-13 19:42] VITALS: BMI 21.2
[2017-07-13] MEDS: METOPROLOL TARTRATE 25 MG TABLET PO SCH (20:04)
[2017-07-13] MEDS: SALINE FLUSH 10 ML DISP.SYRIN IV SCH (20:08)
[2017-07-14] MEDS ORDERED: FUROSEMIDE 20 MG TABLET PO SCH (09:00)
[2017-07-14] MEDS ORDERED: POTASSIUM CHLORIDE 20 MEQ TABLET.ER PO SCH (09:00)
[2017-07-14] MEDS ORDERED: LISINOPRIL 5 MG TABLET PO SCH (09:00)
[2017-07-14] MEDS ORDERED: ASPIRIN 325 MG TABLET PO SCH (09:00)
[2017-07-14] MEDS ORDERED: predniSONE 20 MG TABLET PO SCH (09:00)
[2017-07-14] MEDS: METOPROLOL TARTRATE 25 MG TABLET PO SCH (09:35)
[2017-07-14] MEDS: SALINE FLUSH 10 ML DISP.SYRIN IV SCH (09:35)
[2017-07-14 10:40] LABS: eGFR (African) > 60; eGFR (Non-African) > 60
[2017-07-14 14:31] VITALS: BP 162/61
--- NOTE | 2017-07-18 09:30 | Discharge Summary ---
DATE OF ADMISSION: July 13, 2017 DATE OF DISCHARGE: July 14, 2017 DIAGNOSES ON THIS HOSPITALIZATION: 1. Shortness of breath. 2. Chronic obstructive pulmonary disease (COPD). 3. Aortic stenosis. 4. Anxiety. SUMMARIZATION OF ADMISSION HISTORY AND PHYSICAL She was admitted from the emergency room after yesterday having some lightheadedness and dizziness, as well as some shortness of breath. She came down to the office at the apartments where she lives and they insisted she come to the emergency room by ambulance. She was evaluated there by Dr. Eric who determined that she should be put in the hospital for observation. Her labs at the time of admission showed an elevated BNP, however, it was about her baseline at 8223. A chest x-ray failed to show any significant changes from her last exam. She was mildly hypoxic which corrected well with oxygen by nasal cannula. HOSPITAL COURSE: She actually did quite well. The next morning she was able to be ambulating without significant difficulty. She was discharged to home with continuation of all of her current medications. DISCHARGE INSTRUCTIONS: She will be going home today with plans for admission to [facility] on Wednesday of this week. MARGARITO
== END 2017-07-14 15:10 | disposition home or self-care (01) ==
LOC: ED 13:58 → INTOOBSV 15:18 → SOUTH 15:18
PROVIDERS: ADMIT Family Medicine; ATTEND Family Medicine
DX: J44.1 Chronic obstructive pulmonary disease with (acute) exacerbation (principal); I35.0 Nonrheumatic aortic (valve) stenosis; I51.9 Heart disease, unspecified; F41.9 Anxiety disorder, unspecified
CPT/HCPCS: 36415; 71020; 80048; 80053; 81002; 83880; 84484; 85025; 93005; A9270; G0378; J1650; G0379

== ENCOUNTER 2017-08-14 19:34 | Inpatient (IN) | payer MEDICARE, OTHER ==
--- NOTE | 2017-08-14 19:54 | ED Physician Documentation ---
Chest Pain - HISTORIAN Historian: patient - HPI Chief Complaint: Dyspnea Onset: other (1-2 months) Timing: sudden onset Duration: none Last known Well Date: 06/22/17 (about 2 month ago) Last Known Well Time: 00:00 (unknown) Context: onset during: Severity: moderate (seems to be getting worse) Quality: tightness, other (pain with coughing) Chest Pain Radiation: no radiation Chest Pain Signs/Symptoms: denies: nausea, vomiting, diaphoresis Worsened By: deep breaths Relieved By: nothing Further Comments: yes - ROS CONST: no problems MS/LYMPH: none EYES/ENT: none SKIN/ENDO: none - PAST HX PA risk factors: hypertension, other (GERDs,OA, Type 2 diabetes) Surgeries/Procedures: cholecysectomy, appendectomy, hysterectomy, other (arm fracture, lumpectomy) Allergies/Adverse Reactions: Allergies Allergy/AdvReac Type Severity Reaction Status Date / Time albuterol AdvReac Intermediate Palpitation Verified 08/14/17 21:17 s Home Medications: Ambulatory Orders Medication Instructions Recorded Aspirin 325 mg PO DAILY u2 07/21/16 Budesonide [Pulmicort] 1 appl INH BID 08/14/17 Melatonin [Melatin] 3 mg PO HS 08/14/17 - SOCIAL HX Smoking History: non-smoker Alcohol Use: none Drug Use: none - FAMILY HX Family HX: none - VITAL SIGNS Vital Signs: Vital Signs Temp Pulse Resp BP Pulse Ox 162/61 07/14/17 14:00 - REVIEWED ASSESSMENTS Nursing Assessment Reviewed: Yes Vitals Reviewed: Yes Progress - EKG/XRAY/CT EKG: NSR Comments: LVH, PAC, no acute ischemic changes ED Results Lab/Radiology - Radiology Radiology Impressions: Chest 2 views History: Dyspnea Findings: A moderate to large right pleural effusion has significantly increased in size since the exam obtained 1 month ago. This is associated with right middle lobe and right lower lobe consolidation or collapse. Central pulmonary artery enlargement, cardiomegaly, hyperinflation, and postoperative right breast changes are again noted. Impression: 1. Significantly increased right pleural effusion with new right middle lobe and right lower lobe consolidation or collapse since the prior exam. 2. Cardiomegaly, chronic obstructive pulmonary disease, and probable pulmonary hypertension without change. Chest Pain Physical Exam - EXAM General Appearance: alert, moderate distress EENT: pharynx normal, no signs of dehydration Neck: no carotid bruit, JVD present. No: lymphadenopathy Respiratory: chest non-tender, resp.distress, rales (in bases) CVS: reg. rate & rhythm, no gallop, pulses full, murmur Abdomen: soft, no organomegaly, normal bowel sounds, no abdominal bruit, no distension Skin: warm/dry, normal color Extremities: edema (3 plus bilaterally) Neuro: oriented X3, CN's nml as tested, motor nml, sensation nml, mood/affect nml, cognition normal Discharge
[2017-08-14 20:53] LABS: BASOPHILS % 0.2 (0.0-1.5); EOSINOPHILS % 0.5 % (0.0-6.8); MEAN CORPUSCULAR VOLUME 88.4 fl (80.0-100.0); MONOCYTES % 4.6 % (0.0-11.0); NEUTROPHILS # 10.8 # k/uL (1.4-7.7)
[2017-08-14 21:07] LABS: eGFR (African) > 60; eGFR (Non-African) > 60
--- NOTE | 2017-08-14 21:43 | Diagnostic Imaging Report ---
ALVARO WHITE [facility] [address] [facility].[address] [address] Report Submission Date: Aug 14, 2017 9:34:42 PM CDT Patient Study Name: BROOK ARAYA Date: Aug 14, 2017 8:27:33 PM CDT Modality Type: CR Gender: F Description: CHEST : 30 Institution: [facility] Physician: ALVARO WHITE Chest 2 views History: Dyspnea Findings: A moderate to large right pleural effusion has significantly increased in size since the exam obtained 1 month ago. This is associated with right middle lobe and right lower lobe consolidation or collapse. Central pulmonary artery enlargement, cardiomegaly, hyperinflation, and postoperative right breast changes are again noted. Impression: 1. Significantly increased right pleural effusion with new right middle lobe and right lower lobe consolidation or collapse since the prior exam. 2. Cardiomegaly, chronic obstructive pulmonary disease, and probable pulmonary hypertension without change. Electronically signed on Aug 14, 2017 9:34:42 PM CDT by: Jonh PIMENTEL
[2017-08-14] MEDS: ENOXAPARIN SODIUM 30 MG/0.3 ML DISP.SYRIN SQ SCH (22:44)
[2017-08-14] MEDS: POTASSIUM CHLORIDE 20 MEQ TABLET.ER PO SCH (22:45)
[2017-08-14] MEDS: FUROSEMIDE 40 MG/4 ML VIAL IVP SCH (22:45)
[2017-08-15] MEDS ORDERED: CEFUROXIME AXETIL 250 MG TABLET PO ONE ×2 (04:11→10:43)
[2017-08-15] MEDS ORDERED: ACETAMINOPHEN 325 MG TABLET PO PRN (10:30)
[2017-08-15] MEDS ORDERED: FUROSEMIDE 20 MG/2 ML VIAL ONE ×2 (10:43→22:05)
[2017-08-15] MEDS ORDERED: ACETAMINOPHEN 325 MG TABLET ONE (11:48)
[2017-08-15] MEDS: POTASSIUM CHLORIDE 20 MEQ TABLET.ER PO SCH (12:27)
[2017-08-15] MEDS: FUROSEMIDE 40 MG/4 ML VIAL IVP SCH ×2 (12:27→14:09)
[2017-08-15] MEDS: SALINE FLUSH 10 ML DISP.SYRIN IV SCH ×2 (12:28→19:40)
[2017-08-15] MEDS: CEFUROXIME AXETIL 250 MG TABLET PO SCH ×2 (12:28→19:39)
[2017-08-15] MEDS: ASPIRIN 325 MG TABLET PO SCH (12:28)
[2017-08-15] MEDS: METOPROLOL TARTRATE 25 MG TABLET PO SCH ×3 (13:36→19:40)
[2017-08-15 13:52] LABS: eGFR (African) > 60; eGFR (Non-African) > 60
[2017-08-15 14:31] VITALS: BMI 20.8
[2017-08-15] MEDS: ENOXAPARIN SODIUM 30 MG/0.3 ML DISP.SYRIN SQ SCH (19:40)
[2017-08-15] MEDS: MELATONIN 3 MG TABLET PO SCH (19:40)
[2017-08-15] MEDS ORDERED: MORPHINE SULFATE 2 MG/ML PREFILLED SYR IVP PRN (23:54)
[2017-08-16] MEDS: FUROSEMIDE 40 MG/4 ML VIAL IVP SCH ×2 (05:35→18:28)
[2017-08-16 09:17] LABS: MEAN CORPUSCULAR HEMOGLOBIN 30.4 pg (28.0-34.0); MEAN CORPUSCULAR VOLUME 87.7 fl (80.0-100.0)
--- NOTE | 2017-08-16 09:25 | Inpatient Progress Note ---
Subjective - Required Recertification Statement I anticipate X number of days because-include discharge plan: 3 - Review of Systems General: Denies: Chills, Night Sweats HEENT: Denies: Head Aches Pulmonary: Dyspnea, Cough, Pleuritic Chest Pain (intermittent left) Cardiovascular: Chest Pain (as above) Gastrointestinal: Denies: Nausea, Vomiting Musculoskeletal: Denies: Neck Pain Neurological: Weakness. Denies: Confusion Objective - Exam Vitals and I&O: Vital Signs Temp 97.3 F L 08/16/17 05:52 Pulse 66 08/16/17 05:52 Resp 22 08/16/17 05:52 BP 131/61 08/16/17 05:52 Pulse Ox 78 L 08/16/17 05:52 Intake & Output 08/15/17 08/15/17 08/16/17 11:59 23:59 11:59 Intake Total 220 910 360 Output Total 1250 900 Balance 220 -340 -540 Weight 112 kg Intake: Oral 220 910 360 Output: Urine 1250 900 Other: Voiding Method Toilet # Voids 2 2 General: Alert, Oriented to Person, Oriented to Place, Cooperative, Mild distress (respiratory) HEENT: Atraumatic, PERRLA, EOMI Neck: Supple, No JVD Lungs: Wheezes, Rhonchi, Prolonged Expiration Cardiovascular: Regular rate, Murmur (IV/ DEBBY consistent with ) Abdomen: Normal bowel sounds, Soft, No tenderness Extremities: No clubbing, Other (2+ (about baseline)) Neurological: Normal speech, Generalized Weakness - Results Results: Laboratory Results WBC 12.00 K/ul (4.00-12.00) 08/14/17 20:48 RBC 3.98 M/ul (3.90-5.20) 08/14/17 20:48 Hgb 11.5 g/dL (12.0-16.0) L 08/14/17 20:48 Hct 35.2 % (34.5-46.5) 08/14/17 20:48 MCV 88.4 fl (80.0-100.0) 08/14/17 20:48 MCH 29.0 pg (28.0-34.0) 08/14/17 20:48 MCHC 32.8 g/dL (30.0-36.0) 08/14/17 20:48 RDW 14.0 % (11.3-14.3) 08/14/17 20:48 Plt Count 323 K/mm3 (130-400) 08/14/17 20:48 Neut % (Auto) 90.5 % (39.0-79.0) H 08/14/17 20:48 Lymph % (Auto) 4.0 % (16.0-50.0) L 08/14/17 20:48 [place] % (Auto) 4.6 % (0.0-11.0) 08/14/17 20:48 Eos % (Auto) 0.5 % (0.0-6.8) 08/14/17 20:48 Baso % (Auto) 0.2 (0.0-1.5) 08/14/17 20:48 Neut # (Auto) 10.8 # k/uL (1.4-7.7) H 08/14/17 20:48 Lymph # (Auto) 0.5 # k/uL (0.6-4.0) L 08/14/17 20:48 [place] # (Auto) 0.6 # k/uL (0.0-0.9) 08/14/17 20:48 Eos # (Auto) 0.1 # k/uL (0.0-0.6) 08/14/17 20:48 Baso # (Auto) 0.0 # k/uL (0.0-0.5) 08/14/17 20:48 Reactive Lymphs % 0.2 % (0.0-5.0) 08/14/17 20:48 Reactive Lymphs # 0.0 # k/uL (0.0-0.8) 08/14/17 20:48 D-Dimer 531 ng/mL (6.0-682) 08/14/17 20:47 Sodium 126 mmol/L (137-145) L 08/15/17 13:20 Potassium 3.8 mmol/L (3.5-5.1) 08/15/17 13:20 Chloride 84 mmol/L (98-107) L 08/15/17 13:20 Carbon Dioxide 36 mmol/L (22-30) H 08/15/17 13:20 BUN 24 mg/dL (7-17) H 08/15/17 13:20 Creatinine 0.90 mg/dL (0.52-1.04) 08/15/17 13:20 Estimated Creat Clear 85 08/15/17 13:20 Est GFR ( Amer) > 60 (60-) 08/15/17 13:20 Est GFR (Non-Af Amer) > 60 (60-) 08/15/17 13:20 Glucose 167 mg/dL (74-106) H 08/15/17 13:20 Calcium 7.9 mg/dL (8.4-10.2) L 08/15/17 13:20 Total Bilirubin 0.6 mg/dL (0.2-1.3) 08/14/17 20:48 AST 47 U/L (15-46) H 08/14/17 20:48 ALT 78 U/L (13-69) H 08/14/17 20:48 Alkaline Phosphatase 81 U/L (38-126) 08/14/17 20:48 Troponin I < 0.03 ng/mL (0.03-0.06) L 08/14/17 20:47 NT-Pro-B Natriuret Pep > 21672.0 pg/mL (15.0-450.0) H 08/14/17 20:47 Total Protein 6.4 g/dL (6.3-8.2) 08/14/17 20:48 Albumin 3.6 g/dL (3.5-5.0) 08/14/17 20:48 Assessment/Plan - Assessment/Plan (1) Pneumonia Status: Acute Current Visit: No Qualifiers: Pneumonia type: due to unspecified organism Laterality: right Lung location: lower lobe of lung Qualified Code(s): J18.1 - Lobar pneumonia, unspecified organism Comment: stable, improved Assessment: D/C ceftin Start Rocephin and Azithromycin (2) Aortic stenosis, non-rheumatic Status: Acute Current Visit: No Assessment: Chronic, not an operative candidate (3) COPD (chronic obstructive pulmonary disease) Status: Acute Current Visit: No Qualifiers: COPD type: unspecified COPD Qualified Code(s): J44.9 - Chronic obstructive pulmonary disease, unspecified Comment: With continued smoking Assessment: With continued smoking (4) Congestive heart failure Status: Acute Current Visit: No Assessment: Due to
[2017-08-16 09:33] LABS: eGFR (African) > 60; eGFR (Non-African) > 60
[2017-08-16] MEDS: ASPIRIN 325 MG TABLET PO SCH (09:43)
[2017-08-16] MEDS: METOPROLOL TARTRATE 25 MG TABLET PO SCH ×2 (09:43→20:15)
[2017-08-16] MEDS: POTASSIUM CHLORIDE 20 MEQ TABLET.ER PO SCH (09:45)
[2017-08-16 09:47] LABS: MONOCYTES % 2 % (0-11); SEGMENTED NEUTROPHILS % 93 % (39-79)
[2017-08-16] MEDS ORDERED: MORPHINE SULFATE 4 MG/ML PREFILLED SYR IVP PRN (11:00)
[2017-08-16] MEDS: SALINE FLUSH 10 ML DISP.SYRIN IV SCH ×2 (12:09→20:26)
[2017-08-16] MEDS: cefTRIAXone SODIUM 1 GM in 0.9 % SODIUM CHLORIDE 50 ML IV SCH (12:17)
[2017-08-16] MEDS: AZITHROMYCIN 250 MG TABLET PO SCH (12:21)
[2017-08-16] MEDS: BUDESONIDE 0.5MG/2ML AMPUL.NEB NEB SCH ×2 (12:54→18:58)
[2017-08-16] MEDS: MELATONIN 3 MG TABLET PO SCH (20:16)
[2017-08-16] MEDS: ENOXAPARIN SODIUM 30 MG/0.3 ML DISP.SYRIN SQ SCH (20:26)
[2017-08-16] MEDS: CEFUROXIME AXETIL 250 MG TABLET PO SCH (20:27)
[2017-08-17] MEDS: FUROSEMIDE 40 MG/4 ML VIAL IVP SCH ×2 (06:17→15:22)
[2017-08-17] MEDS: BUDESONIDE 0.5MG/2ML AMPUL.NEB NEB SCH ×2 (08:57→22:47)
[2017-08-17] MEDS: AZITHROMYCIN 250 MG TABLET PO SCH (09:06)
[2017-08-17] MEDS: METOPROLOL TARTRATE 25 MG TABLET PO SCH ×2 (09:06→22:19)
[2017-08-17] MEDS: ASPIRIN 325 MG TABLET PO SCH (09:06)
[2017-08-17] MEDS: POTASSIUM CHLORIDE 20 MEQ TABLET.ER PO SCH (09:06)
[2017-08-17] MEDS: cefTRIAXone SODIUM 1 GM in 0.9 % SODIUM CHLORIDE 50 ML IV SCH (11:07)
[2017-08-17] MEDS: SALINE FLUSH 10 ML DISP.SYRIN IV SCH ×2 (11:07→22:10)
[2017-08-17] MEDS ORDERED: ONDANSETRON HCL 4 MG TAB.RAPDIS PO PRN (11:20)
--- NOTE | 2017-08-17 11:20 | Inpatient Progress Note ---
Subjective - Required Recertification Statement I anticipate X number of days because-include discharge plan: 3 - Review of Systems Events since last encounter: Debra has declined somewhat. She is refusing her potassium, but her potassium level has not dropped significantly. She he dyspneic with very little exertion. I spoke with her daughter Kizzy who is here with her today. With her at the bedside, we confirmed that Debra wants to be a no code blue/DNR. General: Denies: Chills HEENT: Denies: Head Aches Pulmonary: Dyspnea, Cough Cardiovascular: Paroxysmal Noc. Dyspnea. Denies: Chest Pain Gastrointestinal: Nausea Genitourinary: Denies: Dysuria Musculoskeletal: Denies: Neck Pain Neurological: Weakness, Change in Speech (lower volume. Content remains good). Denies: Confusion Objective - Exam Vitals and I&O: Vital Signs Temp 98.1 F 08/17/17 09:27 Pulse 74 08/17/17 09:27 Resp 24 08/17/17 09:27 BP 178/60 08/17/17 09:27 Pulse Ox 100 08/17/17 09:27 Intake & Output 08/16/17 08/16/17 08/17/17 11:59 23:59 11:59 Intake Total 360 440 240 Output Total 900 1000 Balance -540 440 -760 Weight 112 kg 50.802 kg 110 kg Intake: Oral 360 440 240 Output: Urine 900 1000 Other: Voiding Method Toilet Toilet # Voids 2 2 4 # Bowel Movements 1 General: Alert, Oriented to Person, Moderate distress (respiratory) HEENT: Atraumatic, PERRLA, EOMI Neck: Supple Lungs: Decreased Air Movement (right hemithorax) Cardiovascular: Regular rate, Murmur (V/ DEBBY) Abdomen: Normal bowel sounds, Soft, No tenderness Extremities: Other (Edema is about 3+) Skin: Normal Neurological: Generalized Weakness Psych/Mental Status: Mood NL - Results Results: Laboratory Results WBC 9.90 K/ul (4.00-12.00) 08/16/17 08:50 RBC 3.69 M/ul (3.90-5.20) L 08/16/17 08:50 Hgb 11.2 g/dL (12.0-16.0) L 08/16/17 08:50 Hct 32.4 % (34.5-46.5) L 08/16/17 08:50 MCV 87.7 fl (80.0-100.0) 08/16/17 08:50 MCH 30.4 pg (28.0-34.0) 08/16/17 08:50 MCHC 34.7 g/dL (30.0-36.0) 08/16/17 08:50 RDW 13.9 % (11.3-14.3) 08/16/17 08:50 Plt Count 291 K/mm3 (130-400) 08/16/17 08:50 Neut % (Auto) 90.5 % (39.0-79.0) H 08/14/17 20:48 Lymph % (Auto) 4.0 % (16.0-50.0) L 08/14/17 20:48 [place] % (Auto) 4.6 % (0.0-11.0) 08/14/17 20:48 Eos % (Auto) 0.5 % (0.0-6.8) 08/14/17 20:48 Baso % (Auto) 0.2 (0.0-1.5) 08/14/17 20:48 Neut # (Auto) 10.8 # k/uL (1.4-7.7) H 08/14/17 20:48 Lymph # (Auto) 0.5 # k/uL (0.6-4.0) L 08/14/17 20:48 [place] # (Auto) 0.6 # k/uL (0.0-0.9) 08/14/17 20:48 Eos # (Auto) 0.1 # k/uL (0.0-0.6) 08/14/17 20:48 Baso # (Auto) 0.0 # k/uL (0.0-0.5) 08/14/17 20:48 Seg Neutrophils % 93 % (39-79) H 08/16/17 08:50 Band Neutrophils % 1 % (0-12) 08/16/17 08:50 Lymphocytes % 4 % (16-50) L 08/16/17 08:50 Reactive Lymphs % 0.2 % (0.0-5.0) 08/14/17 20:48 Monocytes % 2 % (0-11) 08/16/17 08:50 Reactive Lymphs # 0.0 # k/uL (0.0-0.8) 08/14/17 20:48 Plt Morphology Comment Normal (NORMAL) 08/16/17 08:50 RBC Morph Comment Normal (NORMAL) 08/16/17 08:50 D-Dimer 531 ng/mL (6.0-682) 08/14/17 20:47 Sodium 123 mmol/L (137-145) L 08/16/17 08:50 Potassium 3.7 mmol/L (3.5-5.1) 08/16/17 08:50 Chloride 84 mmol/L (98-107) L 08/16/17 08:50 Carbon Dioxide 32 mmol/L (22-30) H 08/16/17 08:50 BUN 22 mg/dL (7-17) H 08/16/17 08:50 Creatinine 0.70 mg/dL (0.52-1.04) 08/16/17 08:50 Estimated Creat Clear 117 08/16/17 08:50 Est GFR ( Amer) > 60 (60-) 08/16/17 08:50 Est GFR (Non-Af Amer) > 60 (60-) 08/16/17 08:50 Glucose 137 mg/dL (74-106) H 08/16/17 08:50 Calcium 8.0 mg/dL (8.4-10.2) L 08/16/17 08:50 Total Bilirubin 0.7 mg/dL (0.2-1.3) 08/16/17 08:50 AST 32 U/L (15-46) 08/16/17 08:50 ALT 53 U/L (13-69) 08/16/17 08:50 Alkaline Phosphatase 68 U/L (38-126) 08/16/17 08:50 Troponin I < 0.03 ng/mL (0.03-0.06) L 08/14/17 20:47 NT-Pro-B Natriuret Pep > 90064.0 pg/mL (15.0-450.0) H 08/14/17 20:47 Total Protein 6.2 g/dL (6.3-8.2) L 08/16/17 08:50 Albumin 3.3 g/dL (3.5-5.0) L 08/16/17 08:50 Assessment/Plan - Assessment/Plan (1) Pneumonia Status: Acute Current Visit: No Qualifiers: Pneumonia type: due to unspecified organism Laterality: right Lung location: lower lobe of lung Qualified Code(s): J18.1 - Lobar pneumonia, unspecified organism Comment: stable, improved Assessment: Continue current antibiotics/nebulizer treatments (2) Aortic stenosis, non-rheumatic Status: Acute Current Visit: No Assessment: Chronic, not an operative candidate (3) COPD (chronic obstructive pulmonary disease) Status: Acute Current Visit: No Qualifiers: COPD type: unspecified COPD Qualified Code(s): J44.9 - Chronic obstructive pulmonary disease, unspecified Comment: With continued smoking Plan: Chronic with continued smoking (4) Congestive heart failure Status: Acute Current Visit: No Assessment: Due to Plan: Will honor NCB status
[2017-08-17] MEDS: MELATONIN 3 MG TABLET PO SCH (22:09)
[2017-08-17] MEDS: ENOXAPARIN SODIUM 30 MG/0.3 ML DISP.SYRIN SQ SCH (22:09)
[2017-08-17] MEDS ORDERED: MORPHINE SULFATE 2 MG/ML PREFILLED SYR ONE (22:28)
[2017-08-18] MEDS: FUROSEMIDE 40 MG/4 ML VIAL IVP SCH ×2 (06:01→15:10)
--- NOTE | 2017-08-18 08:27 | Inpatient Progress Note ---
Subjective - Required Recertification Statement I anticipate X number of days because-include discharge plan: 2 - Review of Systems Events since last encounter: Debra has continued to decline. She is less alert this morning and struggling more for air. Her O2 sats are now 90 on 3LNC, however she is not keeping her oxygen in place very well. Her chest X ray is pending this morning. General: Denies: Chills, Night Sweats HEENT: Denies: Head Aches Pulmonary: Dyspnea, Cough Cardiovascular: Denies: Chest Pain, Palpitations Gastrointestinal: Denies: Nausea, Vomiting Genitourinary: Denies: Dysuria Musculoskeletal: Denies: Neck Pain, Shoulder Pain Neurological: Weakness, Change in Speech, Confusion. Denies: Seizures Objective - Exam Vitals and I&O: Vital Signs Temp 98.1 F 08/18/17 06:00 Pulse 70 08/18/17 06:00 Resp 24 08/18/17 06:00 BP 167/59 08/18/17 06:00 Pulse Ox 90 L 08/18/17 06:00 Intake & Output 08/17/17 08/17/17 08/18/17 11:59 23:59 11:59 Intake Total 240 300 Output Total 1000 700 Balance -760 300 -700 Weight 110 kg 49.895 kg Intake: Oral 240 300 Output: Urine 1000 700 Other: Voiding Method Toilet Toilet # Voids 4 # Bowel Movements 1 1 General: Oriented to Person HEENT: Atraumatic, PERRLA Neck: Other (JVD is a little worse) Lungs: Respiratory Distress, Wheezes, Rhonchi, Prolonged Expiration, Decreased Air Movement Cardiovascular: Regular rate, Murmur (V/) Abdomen: Normal bowel sounds, Soft Extremities: Other (Edema is unchanged) Skin: Pale Neurological: Generalized Weakness Psych/Mental Status: No: Mental status NL - Results Results: Laboratory Results WBC 9.90 K/ul (4.00-12.00) 08/16/17 08:50 RBC 3.69 M/ul (3.90-5.20) L 08/16/17 08:50 Hgb 11.2 g/dL (12.0-16.0) L 08/16/17 08:50 Hct 32.4 % (34.5-46.5) L 08/16/17 08:50 MCV 87.7 fl (80.0-100.0) 08/16/17 08:50 MCH 30.4 pg (28.0-34.0) 08/16/17 08:50 MCHC 34.7 g/dL (30.0-36.0) 08/16/17 08:50 RDW 13.9 % (11.3-14.3) 08/16/17 08:50 Plt Count 291 K/mm3 (130-400) 08/16/17 08:50 Neut % (Auto) 90.5 % (39.0-79.0) H 08/14/17 20:48 Lymph % (Auto) 4.0 % (16.0-50.0) L 08/14/17 20:48 [place] % (Auto) 4.6 % (0.0-11.0) 08/14/17 20:48 Eos % (Auto) 0.5 % (0.0-6.8) 08/14/17 20:48 Baso % (Auto) 0.2 (0.0-1.5) 08/14/17 20:48 Neut # (Auto) 10.8 # k/uL (1.4-7.7) H 08/14/17 20:48 Lymph # (Auto) 0.5 # k/uL (0.6-4.0) L 08/14/17 20:48 [place] # (Auto) 0.6 # k/uL (0.0-0.9) 08/14/17 20:48 Eos # (Auto) 0.1 # k/uL (0.0-0.6) 08/14/17 20:48 Baso # (Auto) 0.0 # k/uL (0.0-0.5) 08/14/17 20:48 Seg Neutrophils % 93 % (39-79) H 08/16/17 08:50 Band Neutrophils % 1 % (0-12) 08/16/17 08:50 Lymphocytes % 4 % (16-50) L 08/16/17 08:50 Reactive Lymphs % 0.2 % (0.0-5.0) 08/14/17 20:48 Monocytes % 2 % (0-11) 08/16/17 08:50 Reactive Lymphs # 0.0 # k/uL (0.0-0.8) 08/14/17 20:48 Plt Morphology Comment Normal (NORMAL) 08/16/17 08:50 RBC Morph Comment Normal (NORMAL) 08/16/17 08:50 D-Dimer 531 ng/mL (6.0-682) 08/14/17 20:47 Sodium 123 mmol/L (137-145) L 08/16/17 08:50 Potassium 3.7 mmol/L (3.5-5.1) 08/16/17 08:50 Chloride 84 mmol/L (98-107) L 08/16/17 08:50 Carbon Dioxide 32 mmol/L (22-30) H 08/16/17 08:50 BUN 22 mg/dL (7-17) H 08/16/17 08:50 Creatinine 0.70 mg/dL (0.52-1.04) 08/16/17 08:50 Estimated Creat Clear 117 08/16/17 08:50 Est GFR ( Amer) > 60 (60-) 08/16/17 08:50 Est GFR (Non-Af Amer) > 60 (60-) 08/16/17 08:50 Glucose 137 mg/dL (74-106) H 08/16/17 08:50 Calcium 8.0 mg/dL (8.4-10.2) L 08/16/17 08:50 Total Bilirubin 0.7 mg/dL (0.2-1.3) 08/16/17 08:50 AST 32 U/L (15-46) 08/16/17 08:50 ALT 53 U/L (13-69) 08/16/17 08:50 Alkaline Phosphatase 68 U/L (38-126) 08/16/17 08:50 Troponin I < 0.03 ng/mL (0.03-0.06) L 08/14/17 20:47 NT-Pro-B Natriuret Pep > 65068.0 pg/mL (15.0-450.0) H 08/14/17 20:47 Total Protein 6.2 g/dL (6.3-8.2) L 08/16/17 08:50 Albumin 3.3 g/dL (3.5-5.0) L 08/16/17 08:50 Assessment/Plan - Assessment/Plan (1) Pneumonia Status: Acute Current Visit: No Qualifiers: Pneumonia type: due to unspecified organism Laterality: right Lung location: lower lobe of lung Qualified Code(s): J18.1 - Lobar pneumonia, unspecified organism Comment: stable, improved Assessment: Continue current antibiotic therapy Recheck CXR this morning (2) Aortic stenosis, non-rheumatic Status: Acute Current Visit: No Assessment: Chronic, not a surgical candidate (3) COPD (chronic obstructive pulmonary disease) Status: Acute Current Visit: No Qualifiers: COPD type: unspecified COPD Qualified Code(s): J44.9 - Chronic obstructive pulmonary disease, unspecified Comment: With continued smoking Assessment: Chronic, with end stage COPD. Worsened by pulmonary effusion and pneumonia (4) Congestive heart failure Status: Acute Current Visit: No Assessment: Due to cardiomyopathy and end stage Plan: serum osmolality and urine sodium pending. Likely due to pneumonia. I don't believe that she can be further fluid restricted. Will await those labs today.
[2017-08-18 09:23] LABS: MEAN CORPUSCULAR VOLUME 93.9 fl (80.0-100.0)
[2017-08-18] MEDS: POTASSIUM CHLORIDE 20 MEQ TABLET.ER PO SCH (09:45)
[2017-08-18] MEDS: METOPROLOL TARTRATE 25 MG TABLET PO SCH ×2 (09:45→20:51)
[2017-08-18] MEDS: ASPIRIN 325 MG TABLET PO SCH (09:45)
[2017-08-18] MEDS: AZITHROMYCIN 250 MG TABLET PO SCH (09:46)
[2017-08-18 09:51] LABS: eGFR (African) > 60; eGFR (Non-African) > 60
[2017-08-18] MEDS: BUDESONIDE 0.5MG/2ML AMPUL.NEB NEB SCH (09:54)
[2017-08-18 09:56] LABS: ANISOCYTOSIS 1+ (NEGATIVE); MONOCYTES % 3 % (0-11); SEGMENTED NEUTROPHILS % 93 % (39-79)
[2017-08-18] MEDS: SALINE FLUSH 10 ML DISP.SYRIN IV SCH ×2 (10:06→20:52)
[2017-08-18] MEDS: cefTRIAXone SODIUM 1 GM in 0.9 % SODIUM CHLORIDE 50 ML IV SCH (12:20)
--- NOTE | 2017-08-18 14:54 | Diagnostic Imaging Report ---
[facility] [id number] [address] [facility] [address] [address] Report Submission Date: Aug 18, 2017 9:05:25 AM CDT Patient Study Name: BROOK ARAYA Date: Aug 18, 2017 8:44:09 AM CDT Modality Type: CR Gender: F Description: CHEST : 30 Institution: [facility] Physician: [facility] Examination: Portable chest History: Chest discomfort Comparison exam: 14 August 2017 Findings: Single view of the chest demonstrates significant increase in the right pleural effusion and parenchymal infiltrate. Left hemithorax without focal infiltrate or blunting of the costophrenic margin. Osseous structures are appropriate for age. Impression: Significant increase in right effusion/consolidation. Electronically signed on Aug 18, 2017 9:05:25 AM CDT by: Rush PIMENTEL
[2017-08-18] MEDS: MELATONIN 3 MG TABLET PO SCH (20:51)
[2017-08-18] MEDS: ENOXAPARIN SODIUM 30 MG/0.3 ML DISP.SYRIN SQ SCH (20:52)
[2017-08-18] MEDS ORDERED: ALPRAZOLAM 0.5 MG TABLET PO ONE (22:51)
[2017-08-19] MEDS: FUROSEMIDE 40 MG/4 ML VIAL IVP SCH ×2 (06:53→14:55)
[2017-08-19] MEDS: BUDESONIDE 0.5MG/2ML AMPUL.NEB NEB SCH ×2 (07:20→10:10)
--- NOTE | 2017-08-19 09:02 | Inpatient Progress Note ---
Subjective - Required Recertification Statement I anticipate X number of days because-include discharge plan: 3 - Review of Systems Events since last encounter: Debra is sleeping better. She was very anxious last night and calling out for her daughter Kizzy. She is breathing better this morning. Her labs, specifically her sodium has improved. She has not eaten much of her breakfast. General: Denies: Chills HEENT: Denies: Head Aches Pulmonary: Dyspnea, Cough Cardiovascular: Orthopnea. Denies: Chest Pain Gastrointestinal: Denies: Nausea, Vomiting Genitourinary: Denies: Dysuria Musculoskeletal: Denies: Neck Pain Neurological: Weakness, Change in Speech, Confusion Objective - Exam Vitals and I&O: Vital Signs Temp 98.9 F 08/19/17 06:00 Pulse 69 08/19/17 07:00 Resp 14 08/19/17 06:00 BP 116/63 08/19/17 06:00 Pulse Ox 96 08/19/17 06:00 Intake & Output 08/18/17 08/18/17 08/19/17 11:59 23:59 11:59 Intake Total 60 400 Output Total 700 Balance -640 400 Weight 49.895 kg Intake: Oral 60 400 Output: Urine 700 Other: Voiding Method Toilet Toilet # Voids 2 3 General: Moderate distress (respiratory) HEENT: Atraumatic, Mouth Mucous membr. moist/[place] Neck: Supple, No JVD Lungs: Wheezes, Rales, Prolonged Expiration, Decreased Air Movement (right hemithorax) Cardiovascular: Regular rate, Murmur (V/) Abdomen: Normal bowel sounds, Soft Extremities: Other (Edema unchanged). No: No clubbing, No cyanosis Skin: Pale Neurological: Generalized Weakness Psych/Mental Status: Other - Results Results: Laboratory Results WBC 7.40 K/ul (4.00-12.00) 08/18/17 09:05 RBC 3.75 M/ul (3.90-5.20) L 08/18/17 09:05 Hgb 11.2 g/dL (12.0-16.0) L 08/18/17 09:05 Hct 35.2 % (34.5-46.5) 08/18/17 09:05 MCV 93.9 fl (80.0-100.0) 08/18/17 09:05 MCH 30.0 pg (28.0-34.0) 08/18/17 09:05 MCHC 31.9 g/dL (30.0-36.0) 08/18/17 09:05 RDW 13.8 % (11.3-14.3) 08/18/17 09:05 Plt Count 254 K/mm3 (130-400) 08/18/17 09:05 Neut % (Auto) 90.5 % (39.0-79.0) H 08/14/17 20:48 Lymph % (Auto) 4.0 % (16.0-50.0) L 08/14/17 20:48 [place] % (Auto) 4.6 % (0.0-11.0) 08/14/17 20:48 Eos % (Auto) 0.5 % (0.0-6.8) 08/14/17 20:48 Baso % (Auto) 0.2 (0.0-1.5) 08/14/17 20:48 Neut # (Auto) 10.8 # k/uL (1.4-7.7) H 08/14/17 20:48 Lymph # (Auto) 0.5 # k/uL (0.6-4.0) L 08/14/17 20:48 [place] # (Auto) 0.6 # k/uL (0.0-0.9) 08/14/17 20:48 Eos # (Auto) 0.1 # k/uL (0.0-0.6) 08/14/17 20:48 Baso # (Auto) 0.0 # k/uL (0.0-0.5) 08/14/17 20:48 Seg Neutrophils % 93 % (39-79) H 08/18/17 09:05 Band Neutrophils % 1 % (0-12) 08/18/17 09:05 Lymphocytes % 3 % (16-50) L 08/18/17 09:05 Reactive Lymphs % 0.2 % (0.0-5.0) 08/14/17 20:48 Monocytes % 3 % (0-11) 08/18/17 09:05 Reactive Lymphs # 0.0 # k/uL (0.0-0.8) 08/14/17 20:48 Plt Morphology Comment Normal (NORMAL) 08/18/17 09:05 Anisocytosis 1+ (NEGATIVE) H 08/18/17 09:05 RBC Morph Comment Abnormal (NORMAL) H 08/18/17 09:05 D-Dimer 531 ng/mL (6.0-682) 08/14/17 20:47 Sodium 128 mmol/L (137-145) L 08/18/17 09:05 Potassium 3.5 mmol/L (3.5-5.1) 08/18/17 09:05 Chloride 81 mmol/L (98-107) L 08/18/17 09:05 Carbon Dioxide > 40 mmol/L (22-30) H 08/18/17 09:05 BUN 23 mg/dL (7-17) H 08/18/17 09:05 Creatinine 0.70 mg/dL (0.52-1.04) 08/18/17 09:05 Estimated Creat Clear 52 08/18/17 09:05 Est GFR ( Amer) > 60 (60-) 08/18/17 09:05 Est GFR (Non-Af Amer) > 60 (60-) 08/18/17 09:05 Glucose 133 mg/dL (74-106) H 08/18/17 09:05 Calcium 8.2 mg/dL (8.4-10.2) L 08/18/17 09:05 Total Bilirubin 0.4 mg/dL (0.2-1.3) 08/18/17 09:05 AST 17 U/L (15-46) 08/18/17 09:05 ALT 42 U/L (13-69) 08/18/17 09:05 Alkaline Phosphatase 63 U/L (38-126) 08/18/17 09:05 Troponin I < 0.03 ng/mL (0.03-0.06) L 08/14/17 20:47 NT-Pro-B Natriuret Pep > 52730.0 pg/mL (15.0-450.0) H 08/14/17 20:47 Total Protein 5.8 g/dL (6.3-8.2) L 08/18/17 09:05 Albumin 3.2 g/dL (3.5-5.0) L 08/18/17 09:05 Urine Collection Time Random urine hrs 08/17/17 23:30 Urine Total Volume Random urine mL 09/26/17 23:30 Ur Sodium mmol/L <60 mmol/L 08/17/17 23:30 Ur Sodium mmol/Day mmol/day (40-220) 08/17/17 23:30 Assessment/Plan - Assessment/Plan (1) Pneumonia Status: Acute Current Visit: No Qualifiers: Pneumonia type: due to unspecified organism Laterality: right Lung location: lower lobe of lung Qualified Code(s): J18.1 - Lobar pneumonia, unspecified organism Comment: stable, improved Assessment: Clinically improved, labs improved, however with multiple comorbidities her condition is still guarded (2) Aortic stenosis, non-rheumatic Status: Acute Current Visit: No Assessment: Chronic (3) COPD (chronic obstructive pulmonary disease) Status: Acute Current Visit: No Qualifiers: COPD type: unspecified COPD Qualified Code(s): J44.9 - Chronic obstructive pulmonary disease, unspecified Comment: With continued smoking Narrative Support Text: Continue nebulizer treatments as she will allow (4) Congestive heart failure Status: Acute Current Visit: No Qualifiers: Congestive heart failure type: systolic Congestive heart failure chronicity : acute on chronic Qualified Code(s): I50.23 - Acute on chronic systolic ( congestive) heart failure Assessment: Continue current dose of lasix IV
[2017-08-19] MEDS: METOPROLOL TARTRATE 25 MG TABLET PO SCH (10:09)
[2017-08-19] MEDS: SALINE FLUSH 10 ML DISP.SYRIN IV SCH (10:09)
[2017-08-19] MEDS: ASPIRIN 325 MG TABLET PO SCH (10:09)
[2017-08-19] MEDS: POTASSIUM CHLORIDE 20 MEQ TABLET.ER PO SCH (10:09)
[2017-08-19] MEDS: AZITHROMYCIN 250 MG TABLET PO SCH (10:10)
[2017-08-19] MEDS: cefTRIAXone SODIUM 1 GM in 0.9 % SODIUM CHLORIDE 50 ML IV SCH (10:11)
[2017-08-19 15:16] VITALS: BP 150/66
--- NOTE | 2017-08-20 08:43 | Discharge Summary ---
DATE OF ADMISSION: August 14, 2017 DATE OF DISCHARGE: on August 19, 2017 DIAGNOSES ON THIS HOSPITALIZATION : 1. Right lower lobe pneumonia. 2. End-stage chronic obstructive pulmonary disease (COPD). 3. End-stage congestive heart failure. 4. Critical aortic stenosis. SUMMARIZATION OF ADMISSION HISTORY AND PHYSICAL: This is an 87-year-old female who presented with increasing shortness of breath over the last several days. She had been very noncompliant with her medications. She was noted to have a lower lobe infiltrate on admission. She refused to allow nebulizer treatments. We did start her on IV Rocephin and azithromycin. She continued to decline. At 1642 hours on August 19, 2017, she passed. We were unable to locate her family to be at her side. Her body was released to the home with consideration for plans for [facility] to the [facility] from [facility]. MARGARITO
== END 2017-08-19 20:45 | disposition expired | DRG 291 ==
LOC: ED 19:34 → SOUTH 21:36
PROVIDERS: ADMIT Physician Assistant; ATTEND Physician Assistant
DX: I50.20 Unspecified systolic (congestive) heart failure (principal); J18.9 Pneumonia, unspecified organism; J44.1 Chronic obstructive pulmonary disease with (acute) exacerbation; I35.0 Nonrheumatic aortic (valve) stenosis
CPT/HCPCS: 36415; 71010; 71020; 80048; 80053; 83880; 83930; 84300; 84484; 85025; 85379; 93005; 94640; 94760; 97116; 97161; 97165; 97535; A9270; J0696; J1650; J1940; J2270; J7626; 99222; 99232; 99238; 99283; 99284; S1016